=== PATIENT | male | born 1980 | race Caucasian/White ===

== ENCOUNTER 2016-08-07 12:39 | Emergency (ER) | payer OTHER ==
[~2016-08-07] VITALS: Ht 180.3 cm; Wt 104.8 kg
[~2016-08-07 12:39] MED LIST: FLEXERIL10 MG PO; MOTRIN800 MG PO; NAPROSYN500 MG PO; NORCO 5/3251 TABLET PO; PREDNISONE20 MG PO; TESSALON PERLE100 MG PO; TRAMADOL HCL50 MG PO; ULTRAM50 MG PO; VENTOLIN HFA18 GM IH; ZOFRAN ODT8 MG PO
[2016-08-07 13:49] LABS: ADD MIUA? NO; BILIRUBIN NEGATIVE; BLOOD NEGATIVE; COLOR YELLOW ((YELLOW)); GLUCOSE (STRIP) NEGATIVE; KETONES NEGATIVE; LEUKOCYTES NEGATIVE; NITRITE NEGATIVE; PROTEIN (STRIP) NEGATIVE; SPECIFIC GRAVITY 1.021 (1.000-1.030); UCUL ADDED? NO; UROBILINOGEN 0.2 MG/DL (0.2-1.0)
[2016-08-07 14:05] LABS: HEMATOCRIT 44.2 % (38.0-50.0); MCH 30.8 PG (29.0-34.0); MCHC 34.6 G/DL (30.0-36.0); MCV 88.9 FL (86-99); MEAN PLAT.VOLUME 9.4 uM^3 (9.0-12.4); PLATELET COUNT 240 K/uL (156-360); RBC DIS.WIDTH-CV 12.8 % (11.8-14.6); RBC DIS.WIDTH-SD 41.3 % (39-53); RED BLOOD COUNT 4.97 M/uL (4.00-5.50); WHITE BLOOD COUNT 7.7 K/uL (4.1-10.2)
[2016-08-07 14:13] LABS: AMYLASE 29 IU/L (1-118); CHLORIDE 107 mEq/L (99-109); POTASSIUM 4.1 mEq/L (3.7-5.4); SODIUM 142 mEq/L (136-147)
[2016-08-07 14:15] LABS: GLUCOSE 114 mg/dL (70-99)
[2016-08-07 14:16] LABS: ANION GAP 9 MEQ/L (2-14)
[2016-08-07 14:17] LABS: TOTAL BILIRUBIN 0.5 mg/dL (0.0-1.0)
[2016-08-07 14:18] LABS: ALKALINE PHOSPHATASE 93 IU/L (3-129)
[2016-08-07 14:19] LABS: GFR ESTIMATE (CALCULATED) > 59 mL/min/
[2016-08-07 14:20] LABS: UREA NITROGEN (BUN) 16 mg/dL (9-23)
[2016-08-07 14:22] LABS: LIPASE 17 U/L (1.0-51.0)
[2016-08-07] MEDS ORDERED: MOTRIN800 MG PO (18:50)
[2016-08-07] MEDS ORDERED: ZOFRAN ODT4 MG PO (18:50)
[2016-08-07] MEDS ORDERED: BENTYL20 MG PO (18:50)
[2016-08-07] MEDS ORDERED: PERCOCET 5/31 TABLET PO (19:00)
[2016-08-07 19:07] VITALS: BP 120/85
== END 2016-08-07 19:08 | disposition home or self-care (01) ==
LOC: EME 12:39
PROVIDERS: Nurse Practitioner Family
DX: R10.12 Left upper quadrant pain (principal); Z87.891 Personal history of nicotine dependence
CPT/HCPCS: 74000; 74177; 80053; 81003; 82150; 83690; 85027; 99281; 99285; J1200; J1885; J2270; J2405; J7030

== ENCOUNTER 2016-08-19 05:48 | Emergency (ER) | payer OTHER ==
[~2016-08-19] VITALS: Ht 177.8 cm; Wt 109.4 kg
[~2016-08-19 05:48] MED LIST changes: +BENTYL20 MG PO; +PERCOCET 5/31 TABLET PO; +ZOFRAN ODT4 MG PO
[2016-08-19 08:27] LABS: ADD MIUA? NO; BILIRUBIN NEGATIVE; BLOOD NEGATIVE; COLOR YELLOW ((YELLOW)); GLUCOSE (STRIP) NEGATIVE; KETONES NEGATIVE; LEUKOCYTES NEGATIVE; NITRITE NEGATIVE; PROTEIN (STRIP) NEGATIVE; SPECIFIC GRAVITY 1.023 (1.000-1.030); UCUL ADDED? NO; UROBILINOGEN 0.2 MG/DL (0.2-1.0)
[2016-08-19] MEDS ORDERED: VALIUM5 MG PO (09:22)
[2016-08-19] MEDS ORDERED: PERCOCET 5/31 TABLET PO (09:22)
[2016-08-19 09:35] VITALS: BP 99/57
[2016-08-19] MEDS ORDERED: ATORVASTATIN CA10 MG PO (09:37)
== END 2016-08-19 09:51 | disposition home or self-care (01) ==
LOC: EME 05:48
PROVIDERS: Emergency Medicine
DX: S39.012A Strain of muscle, fascia and tendon of lower back, initial encounter (principal); V47.1XXA Car passenger injured in collision with fixed or stationary object in nontraffic accident, initial encounter; J45.909 Unspecified asthma, uncomplicated; Z87.891 Personal history of nicotine dependence
CPT/HCPCS: 81003; 99281; 99284

== ENCOUNTER 2017-01-22 16:52 | Emergency (ER) | payer OTHER ==
[~2017-01-22] VITALS: Ht 180.3 cm; Wt 105.9 kg
[~2017-01-22 16:52] MED LIST changes: +ATORVASTATIN CA10 MG PO; +VALIUM5 MG PO
[2017-01-22 17:33] LABS: HEMATOCRIT 43.1 % (38.0-50.0); MCH 31.3 PG (29.0-34.0); MCHC 33.6 G/DL (30.0-36.0); MCV 92.9 FL (86-99); MEAN PLAT.VOLUME 9.4 uM^3 (9.0-12.4); PLATELET COUNT 239 K/uL (156-360); RBC DIS.WIDTH-CV 12.3 % (11.8-14.6); RBC DIS.WIDTH-SD 42.2 % (39-53); RED BLOOD COUNT 4.64 M/uL (4.00-5.50); WHITE BLOOD COUNT 6.8 K/uL (4.1-10.2)
[2017-01-22 17:41] LABS: CHLORIDE 104 mEq/L (99-109); POTASSIUM 4.2 mEq/L (3.7-5.4); SODIUM 142 mEq/L (136-147)
[2017-01-22 17:42] LABS: GLUCOSE 112 mg/dL (70-99)
[2017-01-22 17:44] LABS: ANION GAP 10 MEQ/L (2-14)
[2017-01-22 17:46] LABS: GFR ESTIMATE (CALCULATED) > 59 mL/min/
[2017-01-22 17:47] LABS: UREA NITROGEN (BUN) 13 mg/dL (9-23)
[2017-01-22 18:25] LABS: ADD MIUA? YES; BILIRUBIN NEGATIVE; BLOOD NEGATIVE; COLOR YELLOW ((YELLOW)); GLUCOSE (STRIP) NEGATIVE; KETONES NEGATIVE; LEUKOCYTES NEGATIVE; NITRITE NEGATIVE; PROTEIN (STRIP) 30; SPECIFIC GRAVITY 1.025 (1.000-1.030); UROBILINOGEN 0.2 MG/DL (0.2-1.0)
[2017-01-22 18:38] LABS: BACTERIA NONE SEEN /HPF; EPITHELIAL CELLS NONE SEEN /HPF; MUCUS 1+ /LPF; RED BLOOD CELLS 0-5 /HPF (0-5); UCUL ADDED? NO; UNCLASSIFIED CRYSTALS 1+ /HPF; WHITE BLOOD CELLS 0-5 /HPF (0-5)
[2017-01-22] MEDS ORDERED: NAPROSYN500 MG PO (21:35)
[2017-01-22] MEDS ORDERED: MIRALAX17 GM PO (21:35)
[2017-01-22] MEDS ORDERED: FLEXERIL10 MG PO (21:35)
[2017-01-22 22:09] VITALS: BP 111/69
== END 2017-01-22 22:16 | disposition home or self-care (01) ==
LOC: EME 16:52
DX: K59.00 Constipation, unspecified (principal); R10.12 Left upper quadrant pain; M54.5 Low back pain; E78.5 Hyperlipidemia, unspecified; Z87.891 Personal history of nicotine dependence
CPT/HCPCS: 74176; 80048; 81003; 85027; 99281; 99284; J1885; J7030

== ENCOUNTER 2017-03-27 17:33 | Emergency (ER) | payer OTHER ==
[~2017-03-27] VITALS: Ht 180.3 cm; Wt 105.4 kg
[~2017-03-27 17:33] MED LIST changes: +MIRALAX17 GM PO
[2017-03-27] MEDS ORDERED: PERCOCET 5/31 TABLET PO (22:18)
[2017-03-27] MEDS ORDERED: VALIUM5 MG PO (22:18)
[2017-03-27] MEDS ORDERED: MEDROL DOSEPAK4 MG PO (22:18)
[2017-03-27 22:38] VITALS: BP 117/80
== END 2017-03-27 22:39 | disposition home or self-care (01) ==
LOC: EME 17:33
DX: S39.012A Strain of muscle, fascia and tendon of lower back, initial encounter (principal); M79.605 Pain in left leg; X50.9XXA Other and unspecified overexertion or strenuous movements or postures, initial encounter; E78.00 Pure hypercholesterolemia, unspecified; Z87.891 Personal history of nicotine dependence
CPT/HCPCS: 99281; 99284; J1885

== ENCOUNTER 2017-11-01 06:24 | Emergency (ER) | payer SELFPAY ==
[~2017-11-01] VITALS: Ht 180.3 cm; Wt 107.5 kg
[~2017-11-01 06:24] MED LIST changes: +MEDROL DOSEPAK4 MG PO
[2017-11-01] MEDS ORDERED: PERCOCET 5/31 TABLET PO (08:19)
[2017-11-01 08:56] VITALS: BP 125/82
== END 2017-11-01 08:58 | disposition home or self-care (01) ==
LOC: EME 06:24
DX: S20.219A Contusion of unspecified front wall of thorax, initial encounter (principal); S40.011A Contusion of right shoulder, initial encounter; V87.8XXA Person injured in other specified noncollision transport accidents involving motor vehicle (traffic), initial encounter; E78.5 Hyperlipidemia, unspecified; J45.909 Unspecified asthma, uncomplicated; G89.29 Other chronic pain; M54.9 Dorsalgia, unspecified; Z87.891 Personal history of nicotine dependence; Z88.0 Allergy status to penicillin; Z91.041 Radiographic dye allergy status
CPT/HCPCS: 71101; 73030; 73502; 99281; 99284